=== PATIENT | male | born 1995 | race Caucasian/White ===

== ENCOUNTER 2021-06-20 08:14 | Emergency (ER) | payer BC, SELFPAY ==
--- NOTE | 2021-06-20 08:18 | ED.SKABFB ---
HPI - Skin/Abscess/Foreign Bdy General Chief complaint: Skin/Abscess/Foreign Body Stated complaint: Possible infection in Pt. Feet Time Seen by Provider: 06/20/21 08:18 Source: patient and RN notes reviewed History of Present Illness HPI narrative: Patient is a 26-year-old male who presents the urgent care with complaints of blisters to the bilateral heels that since June 10. Patient states he has been using Neosporin and cleaning the area with plain Dial soap and water. Patient states that he now sees some redness around the area and was worried they were getting infected . No other acute complaints. No acute distress noted. Patient aware of the plan of care. Some parts of this dictation were generated by voice recognition software and may contain typographical and/or grammatical inaccuracies. Related Data Home Medications Medication Instructions Recorded Confirmed No Home Medications 06/20/21 06/20/21 Allergies Allergy/AdvReac Type Severity Reaction Status Date / Time No Known Allergies Allergy Verified 06/20/21 08:35 Review of Systems Review of Systems: CONSTITUTIONAL: Denies fever, chills, or sweats. EYES: Denies visual changes, redness, or discharge. ENT: Denies rhinorrhea, congestion, sore throat, or otalgia. CARDIOVASCULAR: Denies chest pain, palpitations, or edema. RESPIRATORY: Denies cough or dyspnea. GASTROINTESTINAL: Denies abdominal pain, nausea, vomiting, or diarrhea. GENITOURINARY: Denies dysuria or hematuria. SKIN: Reports of blisters and redness to bilateral heels MUSCULOSKELETAL: Denies back pain, joint pain, or myalgia. NEUROLOGIC: Denies headache, numbness, or weakness. All other systems reviewed are negative, except as documented in HPI. PMFSH Comments At the time of my signature, I reviewed and agree with the nursing past medical, surgical, social, and family history. There is no relevant family history pertinent to the patient complaint. Exam Narrative: GENERAL: This is a well-nourished, well-developed patient, in no apparent distress. HEAD: normocephalic, atraumatic. EYES: PERRL. Sclera clear/white. Vision is grossly intact. EARS: External ears normal NOSE: External nose normal with no obvious nasal discharge, nares without redness, no rhinorrhea. THROAT: Mucous membranes moist NECK: Neck supple CARDIOVASCULAR: Regular rate and rhythm SKIN: Irregular approximately 2 x 3 cm blisters on bilateral heels without any signs of infection. NEURO: awake, alert, and oriented to person, place and time. There were no obvious focal neurologic abnormalities. EXTREMITIES: No clubbing, cyanosis, or edema. Course Vital Signs Vital signs: Vital Signs Temperature 98.1 F 06/20/21 08:30 Pulse Rate 58 L 06/20/21 08:30 Respiratory Rate 18 06/20/21 08:30 Blood Pressure 149/72 H 06/20/21 08:30 Pulse Oximetry 100 06/20/21 08:30 Temperature 98.1 F 06/20/21 08:30 Pulse Rate 58 L 06/20/21 08:30 Respiratory Rate 18 06/20/21 08:30 Blood Pressure 149/72 H 06/20/21 08:30 Pulse Oximetry 100 06/20/21 08:30 Reviewed-patient is informed that they may have pre-hypertension or hypertension based on a blood pressure reading in the department. I recommend the patient call the primary care provider listed on their discharge instructions or a physician of their choice this week to arrange follow-up for further evaluation of possible pre-hypertension or hypertension. MDM - Skin/Abscess/Foreign Bdy MDM Narrative Medical decision making narrative: Advised the patient to keep clean the area with plain Dial soap and water and use Neosporin as needed. Wear comfortable shoes. Do not open the blisters or remove the skin. Follow-up with your PCP within 2 to 5 days or for worsening symptoms or failure to improve. Differential Diagnosis Differential diagnosis: Likely abscess of skin or subcutaneous tissue, urticaria, allergic reaction to drug, cellulitis, insect bites and contact dermatitis Cri
[2021-06-20 08:30] VITALS: BP 149/72; PULSE 58; RESP 18; TEMP 36.7; O2SAT 100
== END 2021-06-20 08:49 | disposition home or self-care (01) ==
PROVIDERS: Emergency Provider Nurse Practitioner Family
DX: S90.822A Blister (nonthermal), left foot, initial encounter (principal); S90.821A Blister (nonthermal), right foot, initial encounter; X58.XXXA Exposure to other specified factors, initial encounter
CPT/HCPCS: 99202; G0463